=== PATIENT | male | born 1995 | race Two or more races ===

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

== ENCOUNTER 2023-03-06 12:26 | Emergency (ER) | payer MEDICAID, OTHER ==
[~2023-03-06] VITALS: Ht 167.6 cm; Wt 88.0 kg
[2023-03-06 13:45] LABS: Basophils # (auto) 0.1 10 ^3/uL (0-0.2); Basophils % (auto) 0.5 % (0.0-2.0); Eosinophils # (auto) 0.1 10 ^3/uL (0-0.8); Eosinophils % (auto) 1.2 % (0.0-7.0); Hematocrit 44.6 % (41.0-53.0); Hemoglobin 15.4 g/dL (13.5-17.5); Lymphocytes # (auto) 1.6 10 ^3/uL (0.4-5.4); Lymphocytes % (auto) 14.4 % (10.0-50.0); Mean Corpuscular Hemoglobin 29.4 pg (28.0-32.0); Mean Corpuscular Hgb Conc. 34.4 g/dL (32.0-36.0); Mean Corpuscular Volume 85.3 fL (80.0-100.0); Monocytes # (auto) 0.8 10 ^3/uL (0-1.3); Monocytes % (auto) 7.2 % (0.0-12.0); Neutrophils # (auto) 8.5 10 ^3/uL (1.6-8.6); Neutrophils % (auto) 76.7 % (37.0-80.0); Nucleated Red Blood Cells % 0.1 %; Red Blood Cells 5.23 10^6/uL (4.5-5.90); Red Cell Distribution Width 13.4 % (11.8-14.3); White Blood Cell 11.1 10^3/uL (4.4-10.8)
[2023-03-06 14:04] LABS: Alanine Aminotransferase 81 U/L (7-40); Albumin 4.8 g/dL (3.2-4.8); Alkaline Phosphatase 78 U/L (46-116); Anion Gap 9.9 (5-15); Aspartate Aminotransferase 62 U/L (13-40); Calcium 9.2 mg/dL (8.5-10.1); Carbon Dioxide 24.1 mmol/L (20-30); Chloride 104 mmol/L (98-107); Glucose 111 mg/dL (74-106); Potassium 3.4 mmol/L (3.5-5.1); Sodium 138 mmol/L (136-145)
[2023-03-06 14:05] LABS: Total Protein 7.4 g/dL (5.7-8.2)
[2023-03-06 14:14] LABS: BUN/Creatinine Ratio 5.8 (10.0-20.0); Blood Urea Nitrogen < 5 mg/dL (9-23)
[2023-03-06 15:07] LABS: Bilirubin, Total 0.3 mg/dL (0.2-1.0)
[2023-03-06 15:35] VITALS: BP 135/86; PULSE 109; RESP 20; TEMP 98.7; O2SAT 98
== END 2023-03-06 15:48 | disposition home or self-care (01) ==
LOC: EDBD 12:26 → ER 12:26
DX: G40.909 Epilepsy, unspecified, not intractable, without status epilepticus (principal); D72.829 Elevated white blood cell count, unspecified; J45.909 Unspecified asthma, uncomplicated; I10 Essential (primary) hypertension
CPT/HCPCS: 36415; 70450; 80053; 82962; 85025